=== PATIENT | male | born 2000 | race Two or more races ===

== ENCOUNTER 2024-03-31 10:03 | Emergency (ER) | payer MEDICAID, SELFPAY ==
--- NOTE | ~2024-03-31 | XR_ITS ---
EXAMINATION: XR LUMBOSACRAL SPINE CLINICAL INFORMATION: Pain following lifting injury. COMPARISON: None available. TECHNIQUE: Three views of the lumbosacral spine. FINDINGS: Mild straightening of the normal lumbar lordosis which may be positional or be seen in the setting of muscle spasm. No acute fracture or subluxation. No loss of vertebral body or intervertebral disc height. No concerning lytic or blastic osseous lesion. No abnormal soft tissue calcification. XR/XR lumbar spine 2-3V IMPRESSION: 1. Mild straightening of the normal lumbar lordosis which may be positional or be seen in the setting of muscle spasm. 2. No acute fracture or subluxation. Electronically signed by: Munir Bundy MD 03/31/2024 11:59 AM [facility]
[2024-03-31 10:16] VITALS: BP 121/82; PULSE 57; RESP 16; TEMP 36.6; O2SAT 97; BMI 21.7
--- NOTE | 2024-03-31 12:15 | ED_ITS ---
HPI - Back Pain/Injury General Chief Complaint: Back Pain/Injury Stated Complaint: back inj Time Seen by Provider: 03/31/24 12:13 Source: patient Mode of arrival: ambulatory Limitations: no limitations History of Present Illness ED Provider: YESICA LOPEZ PA-C HPI Narrative: 24 year old male with no significant pmhx presents to the ED today for evaluation of low back pain after lifting approximately 300 lbs 2 days ago. Pain does not radiate down his extremities. Isolated to bilateral lumbar muscles. Pain is worse with movement. Taking OTC antiinflammatories without much relief. Last dose yesterday. Denies IV drug use. Denies fever, chills, neck pain, bowel or bladder incontinence or retention, numbness/tingling/weakness in the lower extremities, dysuria, hematuria, saddle anesthesia. Related Data Previous Rx's ?Medication ?Instructions ?Recorded cyclobenzaprine 5 mg tablet 5 mg PO Q8H #7 tabs 03/31/24 lidocaine 5 % topical patch 1 patch topical DAILY #15 ea 03/31/24 (Lidoderm) Allergies Allergy/AdvReac Type Severity Reaction Status Date / Time No Known Allergies Allergy Verified 03/31/24 10:18 Review of Systems Review of Systems: Constitutional: No fever, chills, fatigue, night sweats, weight changes ENT/Mouth: No ear pain, hearing loss, nasal congestion, sinus pain, rhinorrhea, sore throat Eyes: No eye pain, swelling, redness, vision changes, discharge Cardio: No chest pain, palpitations, FRANK, orthopnea, peripheral edema Pulm: No SOB, cough, sputum, wheezing, dyspnea, hemoptysis GI: No nausea, vomiting, hematemesis, abdominal pain, diarrhea, constipation, hematochezia, melena : No irregular bleeding, dysuria, frequency, urgency, hesitancy, hematuria, flank pain, urinary flow changes, urinary incontinence or retention MSK: +back pain, No neck pain, joint pain, myalgias Skin: No lesions, rashes Neuro: No weakness, numbness, paresthesias, LOC, dizziness, headache All other systems reviewed and are negative. [facility] Social History Social History Advance Directives: No Do you have a plan to hurt others: No Plan Physical Exam Vital Signs: Vital Signs: Last Vital Signs Temp 97.9 F 03/31/24 12:35 Pulse 57 03/31/24 12:35 Resp 16 03/31/24 12:35 BP 121/82 03/31/24 12:35 Pulse Ox 97 03/31/24 12:35 O2 Del Method Room Air 03/31/24 12:35 BMI result Body Mass Index 21.7 vital signs stable, afebrile General: Well appearing, in no acute distress. Skin: Warm, dry, intact. No rashes or lesions. Head: Normocephalic, atraumatic. EENT: Hearing is intact b/l. Conjunctiva clear. PERRLA. EOM intact. Moist mucous membranes.? Neck: Supple without LAD Cardiac: Chest wall symmetric. RRR. Lungs: Normal respiratory effort without accessory muscle use. CTA bilaterally. No rales, rhonchi, or wheezes.? Abdomen: Soft, non-tender, non-distended. No rebound tenderness or guarding Back: Midline spinous tenderness or step-off deformity. There is bilateral lumbar paraspinal muscle tenderness with palpable spasm. Ext: Upper and lower extremities atraumatic, without tenderness, deformity, swelling or erythema. Full ROM throughout. Neuro: AOx3. Normal speech. Strength 5/5 intact throughout. No saddle anesthesia. Sensation intact to light touch. NV intact distally. Reflexes 2+ bilaterally. Ambulating with steady gait. Psych: Appropriate mood and affect. Responds appropriately to questions. Course Course Course Narrative: Physical exam consistent with muscle spasm. X-ray lumbar spine without noted fracture. Will send patient home with lido patches and flexeril sent to pharmacy. Patient has remained stable throughout ED visit today. Discussed worrisome signs and symptoms and when to return to the ED. All questions answered at this time. Patient is agreeable with disposition and stable for disc harge. Medical Decision Making Medical Decision Making MDM Narrative: 24 year old male with no significant pmhx presents to the ED today for evaluation of low back pain after lifting approximately 300 lbs 2 days ago. Vital signs stable. Afebrile. He is nontoxic appearing and in NAD. On exam, th ere is no midline spinous tenderness or step-off deformity. There is bilateral lumbar paraspinal muscle tenderness with palpable spasm. Neurovascularly intact distally. Strength and sensation intact throughout. Ambulating with steady gait. 2+ patellar DTRs intact. Differential diagnosis includes muscle spasm, msk sprain/ strain, fracture, disc herniation, sciatica. I do not have suspicion for cord compression, cauda equina, Guillain-Amity, epidural abscess. Plan for imaging and re-evaluation. Differential Diagnosis Differential Diagnoses: The differential diagnosis associated with the presentation includes as above Admission/Observation Not indicated. Independent Interpretation I performed an independent interpretation of an: Plain X-Ray Interpretation: xr lumbar spine w/o fracture Radiology Impression Discussion of test interpretation with radiology: I have reviewed the radiologist's reading. Radiologist Impression: EXAMINATION: XR LUMBOSACRAL SPINE CLINICAL INFORMATION: Pain following lifting injury. COMPARISON: None available. TECHNIQUE: Three views of the lumbosacral spine. FINDINGS: Mild straightening of the normal lumbar lordosis which may be positional or be seen in the setting of muscle spasm. No acute fracture or subluxation. No loss of vertebral body or intervertebral disc height. No concerning lytic or blastic osseous lesion. No abnormal soft tissue calcification. XR/XR lumbar spine 2-3V IMPRESSION: 1. Mild straightening of the normal lumbar lordosis which may be positional or be seen in the setting of muscle spasm. 2. No acute fracture or subluxation. Electronically signed by: Munir Bundy MD 03/31/2024 11:59 AM [facility] [place], [place] Workstation: [id number] External Record Review External record reviewed: Inpatient record Prescription Management I considered prescription management with: Other (flexeril, lido patch) Social Determinants Patient?s care significantly limited by Social Determinants of Health including: Other Social Determinant of Health Critical Care Time Critical Care Time Critical Care Time: No Discharge Plan Discharge Clinical Impression: Lumbar paraspinal muscle spasm Patient Disposition: Home, Self-Care Instructions: Muscle Spasm (ED), Heat Pack Application (ED) Additional Instructions: You were evaluated in the Emergency Department today for your back pain.? Your evaluation did not show signs of medical conditions requiring emergent intervention at this time. Avoid bending, lifting, or twisting. Use ice several times per day for 20 minutes at a time for the next 48 hours and then change to heat. We recommend you take 600mg ibuprofen every 6 hours or tylenol 650mg every 6 hours as needed for pain. If needed, you can alternate these medications so that you take one medication every 3 hours. For example, at noon take ibuprofen, then at 3pm take tylenol, then at 6pm take ibuprofen. Flexeril is a muscle relaxer. Take this at night as it makes you drowsy. Do not drive, drink alcohol, or operate machinery while taking it. Lidoderm patches are numbing patches. Apply to painful areas. Please schedule an appointment for follow-up with your primary care provider this week for further evaluation of your symptoms. Return to the Emergency Department if you experience worsening back pain, difficulty walking, fevers, numbness, tingling, incontinence, or any other concerning symptoms. In the case of an emergency call 911. Prescriptions: New cyclobenzaprine 5 mg tablet 5 mg PO Q8H Qty: 7 0RF lidocaine [Lidoderm] 5 % adhesive patch,medicated 1 patch topical DAILY Qty: 15 0RF Rx Instructions: leave on most painful area for up to 12 hrs Referrals: [facility] [place] [facility] [Provider Group] Interventions: ED Discharge Assessment Last Done: 03/31/24 12:35 Discharge Date/Time: 03/31/24 12:36 Print Language: Serbian
[2024-03-31 12:35] VITALS: BP 121/82; PULSE 57; RESP 16; TEMP 36.6; O2SAT 97
== END 2024-03-31 12:36 | disposition home or self-care (01) ==
PROVIDERS: Emergency Provider Emergency Medicine
DX: M62.830 Muscle spasm of back (principal); M54.50 Low back pain, unspecified
CPT/HCPCS: 72100; 99282; 99283